=== PATIENT | female | born 1945 | race African-American/Black ===

== ENCOUNTER 2023-10-21 01:14 | Emergency (ER) | payer OTHER, MEDICAID ==
[~2023-10-21] VITALS: Ht 172.7 cm; Wt 113.6 kg
[2023-10-21 01:50] VITALS: BP 148/78; PULSE 70; RESP 22; TEMP 98.2
[2023-10-21] MEDS: DexAMETHasone SOD PHOS 10MG/1ML VIAL INJ IM ONE (03:01)
[2023-10-21 03:20] VITALS: O2SAT 97
[2023-10-21] MEDS ORDERED: PRED20TA2 PO (03:47)
== END 2023-10-21 04:21 | disposition home or self-care (01) ==
LOC: ER 01:14
DX: J06.9 Acute upper respiratory infection, unspecified (principal)
CPT/HCPCS: 71045; 96372; 99283; J1100